=== PATIENT | male | born 1960 | race Caucasian/White ===

== ENCOUNTER 2019-03-16 10:40 | Emergency (ER) | payer MEDICAID, OTHER ==
[~2019-03-16] VITALS: Ht 175.3 cm; Wt 79.4 kg
[~2019-03-16 10:40] MED LIST: CLON0.1T
[2019-03-16 11:05] VITALS: BP 136/89
[2019-03-16] MEDS ORDERED: BACITRACIN TOP OINT 1 UD PKG TOP ONE (11:15)
[2019-03-16] MEDS ORDERED: LIDOCAINE 1% (LOCAL ANESTH.) PF 5ml SDV ID ONE (11:15)
[2019-03-16] MEDS ORDERED: LIDOCAINE 1% HCL (LOCAL ANESTH.) INJ 20ML MDV ONE (11:20)
[2019-03-16] MEDS ORDERED: cefTRIAXone SOD 1,000 MG VL IM ONE (12:00)
== END 2019-03-16 12:27 | disposition home or self-care (01) ==
LOC: ER 10:40
DX: S62.391B Other fracture of second metacarpal bone, left hand, initial encounter for open fracture (principal); S61.412A Laceration without foreign body of left hand, initial encounter; I10 Essential (primary) hypertension; I25.2 Old myocardial infarction; E78.00 Pure hypercholesterolemia, unspecified; I25.10 Atherosclerotic heart disease of native coronary artery without angina pectoris; F17.210 Nicotine dependence, cigarettes, uncomplicated; Z88.0 Allergy status to penicillin; Z88.5 Allergy status to narcotic agent; Z79.899 Other long term (current) drug therapy; W26.8XXA Contact with other sharp object(s), not elsewhere classified, initial encounter; Y93.89 Activity, other specified; Y92.89 Other specified places as the place of occurrence of the external cause; Y99.8 Other external cause status
CPT/HCPCS: 12002; 73120; 96372; 99283; J0696; J2001

== ENCOUNTER → 2022-06-03 | Outpatient (CLI) | payer MEDICAID | END | disposition home or self-care (01) | LOC: Rad HDHVI 08:02 | PROVIDERS: ATTEND Internal Medicine Cardiovascular Disease | DX: I10 Essential (primary) hypertension (principal); R07.89 Other chest pain | CPT/HCPCS: 93880 ==

== ENCOUNTER → 2022-06-04 | Outpatient (CLI) | payer MEDICAID | END | disposition home or self-care (01) | LOC: Rad HDHVI 08:02 | PROVIDERS: ATTEND Internal Medicine Cardiovascular Disease | DX: I08.1 Rheumatic disorders of both mitral and tricuspid valves (principal); R00.2 Palpitations; R07.89 Other chest pain | CPT/HCPCS: 93306 ==

== ENCOUNTER → 2022-06-07 | Outpatient (CLI) | payer MEDICAID ==
[~2022-06-07] VITALS: Ht 175.3 cm; Wt 79.4 kg
[~2022-06-07] MED LIST changes: +ADENOSINE 67 MG in GIVE UN-DILUTED 0 ML IV ONE; +ADENOSINE 90 MG/30 ML INJ IV ONE
== END | disposition home or self-care (01) ==
LOC: Rad HDHVI 08:13
PROVIDERS: ATTEND Internal Medicine Cardiovascular Disease
DX: I25.10 Atherosclerotic heart disease of native coronary artery without angina pectoris (principal); I10 Essential (primary) hypertension; I25.2 Old myocardial infarction; E78.5 Hyperlipidemia, unspecified; F17.210 Nicotine dependence, cigarettes, uncomplicated; Z95.1 Presence of aortocoronary bypass graft; Z95.0 Presence of cardiac pacemaker; Z82.49 Family history of ischemic heart disease and other diseases of the circulatory system; Z79.899 Other long term (current) drug therapy
CPT/HCPCS: 78452; 93005; 96374; 96375; A9500; J0153

== ENCOUNTER → 2022-10-22 | Outpatient (CLI) | payer MEDICAID ==
[~2022-10-22] MED LIST changes: -ADENOSINE 67 MG in GIVE UN-DILUTED 0 ML IV ONE; -ADENOSINE 90 MG/30 ML INJ IV ONE; +ASPI325T4 PO; +CARV3.1240 PO; +CLOP75TA28 PO; +NIFE1TAB31 PO
[2022-10-22 10:14] VITALS: BP 139/86
[2022-10-22 11:30] VITALS: BP 135/84
== END | disposition home or self-care (01) ==
LOC: Rad HDHVI 11:08
PROVIDERS: ATTEND Internal Medicine Cardiovascular Disease
DX: Z01.818 Encounter for other preprocedural examination (principal); R94.31 Abnormal electrocardiogram [ECG] [EKG]; I45.10 Unspecified right bundle-branch block; R06.02 Shortness of breath; R06.09 Other forms of dyspnea
CPT/HCPCS: 71046; 93005; G0463

== ENCOUNTER 2022-10-24 10:03 | Day surgery (SDC) | payer MEDICAID ==
[2022-10-22 12:23] LABS: Basophils # (auto) 0.1 10 ^3/uL (0-0.2); Basophils % (auto) 1.1 % (0.0-2.0); Eosinophils # (auto) 0.2 10 ^3/uL (0-0.8); Eosinophils % (auto) 2.6 % (0.0-7.0); Hematocrit 48.3 % (41.0-53.0); Hemoglobin 16.2 g/dL (13.5-17.5); Lymphocytes # (auto) 2.4 10 ^3/uL (0.4-5.4); Mean Corpuscular Hemoglobin 29.5 pg (28.0-32.0); Mean Corpuscular Hgb Conc. 33.6 g/dL (32.0-36.0); Mean Corpuscular Volume 87.8 fL (80.0-100.0); Monocytes # (auto) 0.9 10 ^3/uL (0-1.3); Monocytes % (auto) 9.8 % (0.0-12.0); Neutrophils # (auto) 5.9 10 ^3/uL (1.6-8.6); Neutrophils % (auto) 61.5 % (37.0-80.0); Nucleated Red Blood Cells % 0.2 %; Red Cell Distribution Width 14.3 % (11.8-14.3); White Blood Cell 9.6 10^3/uL (4.4-10.8)
[2022-10-22 12:54] LABS: INR 0.97 (0.9-1.15); Partial Thromboplastin Time 29.5 sec (24.6-33.4)
[2022-10-22 13:04] LABS: BUN/Creatinine Ratio 18.2; Calcium 9.6 mg/dL (8.5-10.1); Potassium 4.2 mmol/L (3.5-5.1)
[~2022-10-24] VITALS: Ht 175.3 cm; Wt 79.4 kg
[2022-10-24] VITALS (10 sets, daily range): BP systolic 113–154; BP diastolic 79–88
[~2022-10-24 10:03] MED LIST changes: -CARV3.1240 PO; -NIFE1TAB31 PO
[2022-10-24] MEDS ORDERED: NIFE1TAB31 PO (10:31)
[2022-10-24] MEDS ORDERED: CARV3.1240 PO (10:31)
[2022-10-24] MEDS ORDERED: fentaNYL CITRATE 100 MCG/2 ML VL ONE (13:05)
[2022-10-24] MEDS ORDERED: MIDAZOLAM HCL 2MG/2ML 2ml VIAL (1mg/ml) ONE (13:05)
[2022-10-24] MEDS ORDERED: SODIUM CHL 0.9% 50 ML ONE (13:05)
[2022-10-24] MEDS ORDERED: ANGIOMAX 250 MG VIAL IV ONE (13:05)
[2022-10-24] MEDS ORDERED: LIDOCAINE 2%HCL (LOCAL ANESTH.) INJ 10ml MDV ONE ×2 (13:07→13:15)
== END 2022-10-24 16:30 | disposition home or self-care (01) ==
LOC: CATH 10:03
PROVIDERS: ATTEND Internal Medicine Cardiovascular Disease
DX: R06.02 Shortness of breath (principal); R79.1 Abnormal coagulation profile; F17.210 Nicotine dependence, cigarettes, uncomplicated; Z88.0 Allergy status to penicillin; Z88.5 Allergy status to narcotic agent; Z95.5 Presence of coronary angioplasty implant and graft; Z79.82 Long term (current) use of aspirin; Z72.89 Other problems related to lifestyle
CPT/HCPCS: 36415; 80048; 85025; 85610; 85730; 93455; C1760; C1769; C1874; C1887; C1894; C9600; J0583; J1644; J2001; J2250; J3010; U0003; 99152; 99153